=== PATIENT | female | born 1960 | race Caucasian/White ===

== ENCOUNTER → 2023-09-27 06:33 | Day surgery (SDC) | payer BC, SELFPAY | LOC: GI 06:33 | PROVIDERS: ATTENDING PHYSICIAN Internal Medicine Gastroenterology | DX: K57.30 Diverticulosis of large intestine without perforation or abscess without bleeding (principal); K51.211 Ulcerative (chronic) proctitis with rectal bleeding; K62.5 Hemorrhage of anus and rectum; K52.9 Noninfective gastroenteritis and colitis, unspecified | CPT/HCPCS: 45380; 88305 ==

== ENCOUNTER 2023-10-29 02:00 | Emergency (ER) | payer BC, SELFPAY ==
[2023-10-29 02:07] VITALS: BP 155/96
[2023-10-29 02:09] VITALS: BP 156/74
[2023-10-29 02:16] LABS: % Basophils 0.2 % (0-2); % Immature Granulocytes 0.3 % (0-0.5); % Lymphocytes 45.7 % (20.5-51.1); % Monocytes 9.2 % (1.7-9.3); % Neutrophils 44.6 % (42.2-75.2); Absolute Monocytes 0.8 10^3/uL (0.1-0.6); Absolute Neutrophils 3.9 10^3/uL (1.4-6.5); Hematocrit 39.5 % (37.0-47.0); Hemoglobin 13.4 g/dL (12.0-16.0); Mean Corp Hgb Conc. 33.9 g/dL (33.0-37.0); Mean Corpuscular Hgb 29.5 pg (27.0-31.0); Mean Corpuscular Volume 86.8 fL (81.0-99.0); Mean Platelet Volume 9.2 fL (7.4-10.4); Nucleated Red Blood Cells % 0 %; Platelet Count 226 10^3/uL (130-400); Red Blood Cell Count 4.55 10^6/uL (4.20-5.40); Red Cell Dist. Width 14.3 % (11.5-14.5); White Blood Cell Count 8.7 10^3/uL (4.8-10.8)
[2023-10-29 02:32] VITALS: BMI 28.1
[2023-10-29 02:39] LABS: ALT (SGPT) 29 U/L (0-35); AST (SGOT) 33 U/L (14-36); Albumin 4.3 g/dl (3.5-5.0); Alkaline Phosphatase 81 U/L (38-126); Blood Urea Nitrogen 24 mg/dl (7-17); Calcium 10.7 mg/dl (8.4-10.2); Carbon Dioxide 24 mmol/L (22-30); Chloride 110 mmol/L (98-107); Glucose 94 mg/dl (70-99); Potassium 4.3 mmol/L (3.5-5.1); Sodium 143 mmol/L (135-145); Total Bilirubin 0.4 mg/dl (0.2-1.3); Total Protein 7.3 g/dl (6.3-8.2); eGFR > 60.00
[2023-10-29 02:52] LABS: NT-proBNP 255 pg/ml; Troponin I < 0.012 ng/ml
[2023-10-29 02:56] VITALS: BP 144/84
--- NOTE | 2023-10-29 02:58 | ED.GENMED ---
History of Present Illness
<ELENITA Thomas - Last Filed: 10/29/23 04:22>
General
Chief Complaint: Chest Pain
Source: patient
Exam Limitations: none
Time Seen by Provider: 10/29/23 02:41
Nursing documentation reviewed up to this point in time: agreed with
Travel History
Have you had any contact with someone who has COVID-19?: No
Do you have any symptoms of coronavirus? Fever > 100 degrees, chills, cough, shortness of breath, sore throat, loss of taste or smell, muscle aches, or headache?: No
History of Present Illness
History of Present Illness:
This is a 62 year old female with history of Afib and ulcerative colitis who presents to the ED with complaint of chest pressure x3 hours. She was sleeping when she was woken up with chest pressure and describes the feeling like 'someone standing on
my chest.' She also states she feels as if she is skipping heart beats. She has associated nausea. She took TUMs assuming this was acid reflux, which did not provide any relief. She has increased recent stressors in her life. She denies SOB,
headache, dizziness/lightheadedness, fevers, vomiting or diarrhea. She quick smoking 3 months ago and denies any alcohol consumption. She was recently diagnosed with ulcerative colitis and has been on oral prednisone.
Past History
<ELENITA Thomas - Last Filed: 10/29/23 04:22>
Past History
ED Past Medical History: Other (Crohn's disease versus ulcerative colitis)
Social History
Tobacco: Non-smoker
Personal:
Living: with family
Employment: Employed
Review of Systems
<ELENITA Thomas - Last Filed: 10/29/23 04:22>
Review of Systems
Allergies reviewed?: Yes
All Other Systems: Not applicable
Constitutional: Reports no symptoms
EENT: Reports no symptoms
Respiratory: Reports no symptoms
Cardiac: Reports other (Chest pressure, 'feels like I'm skipping beats')
ABD/GI: Reports nausea
: Reports no symptoms
Musculoskeletal: Reports no symptoms
Skin: Reports no symptoms
Neurological: Reports no symptoms
Endocrine: Reports no symptoms
Hematologic/Lymphatic: Reports no symptoms
Psychiatric: Reports no symptoms
Phy Exam
<ELENITA Thomas - Last Filed: 10/29/23 04:22>
General Physical Exam
General Presentation: well appearing and no apparent distress
General Skin: warm and dry
General Habitus: normal
General Mental: alert
General Hydration: appears well hydrated
ENT Exam
ENT Exam: EOMI, pharynx normal, neck supple and normocephalic
Eye Exam
Eye Exam: PERRL, cornea clear and conjunctiva normal
Cardiovascular Exam
Cardiovascular Exam: no edema, no murmur, normal peripheral pulses and other (PVCs)
Pulmonary Exam
Pulmonary Exam: lungs clear, no respiratory distress, no rales, no crackles, no rhonchi, no stridor, no wheezing and no cough
Gastrointestinal Exam
Gastrointestinal Exam: normal bowel sounds, non tender, soft, no organomegaly, no pulsatile mass and non distended
Neurological Exam
Neurological Exam: alert, oriented x3, no motor deficits and speech normal
Musculoskeletal Exam
Musculoskeletal Exam: full ROM and no edema
Skin Exam
Skin Exam: normal color, warm/dry, no rash and no petechia
Psychiatric Exam
Psychiatric Exam: normal mood/affect
Scores
<Angle Casiano DO - Last Filed: 10/29/23 05:19>
Heart Score for Chest Pain Patients
STEMI patient?: No
History: Slightly or Non-Suspicious
ECG: Normal
Age: >45 - <65 years
Risk Factors: No Risk Factors
Troponin: </= Normal Limit
Heart Score for Chest Pain Patients: 1
Heart Score Risk: 2.5% MACE over next 6 weeks
Course
<ELENITA Thomas - Last Filed: 10/29/23 04:22>
Orders/Labs/Results
Orders:
Orders
10/29/23 02:03
Electrocardiogram (*1) Urgent
Reason for Study: Other
Other Reason for Exam: Respiratory Distress
Cardiac Monitoring- Treatment ONCE
EKG- Treatment ONCE
IV Insert/Care/Rem.- Treatment PRN
CR Chest - 2 Views Urgent
Comment:
Reason For Exam: respiratory distress
O2 Therapy [RESP] Urgent
Titrate/Wean O2 to maintain O2 sat greater than (%): 93
Special Instructions: TO MAINTAIN CONTINUOUS O2 SATS >/= 93%
Pulse Ox/cont/shift [RESP] Urgent
Quantity: 1
Special Instructions: continuous pulse ox
10/29/23 02:06
Complete Blood Count/With Diff Urgent
Comprehensive Metabolic Panel Urgent
Magnesium Urgent
NT-proBNP Urgent
Troponin I Urgent
10/29/23 03:10
Add On- LAB Urgent
Tests Added?: Mg
0.9% Sodium Chloride 1000 ml [Nss] 1,000 ml IV BOLUS
10/29/23 03:12
Mag Hydrox/Al Hydrox/Simeth [Maalox] 30 ml Phenobarb/Hyoscy/Atropine/Scop [] 10 ml Viscous Lidocaine 2% [Xylocaine Viscous Cup] 10 ml PO NOW
10/29/23 03:34
Mag Hydrox/Al Hydrox/Simeth [Maalox] 30 ml .ROUTE .STK-MED ONE
Phenobarb/Hyoscy/Atropine/Scop [] 10 ml .ROUTE .STK-MED ONE
Viscous Lidocaine 2% [Xylocaine Viscous Cup] 15 ml .ROUTE .STK-MED ONE
10/29/23 03:51
Sucralfate Suspension [Carafate Suspension] 1 gm PO NOW STA
10/29/23 04:04
Troponin I Urgent
Abnormal Lab Results
10/29/23
02:06
Absolute Lymphs (auto) 4.0 H 10^3/uL
(1.2-3.4)
Absolute Monos (auto) 0.8 H 10^3/uL
(0.1-0.6)
Chloride 110 H mmol/L
(98-107)
BUN 24 H mg/dl
(7-17)
Calcium 10.7 H mg/dl
(8.4-10.2)
10/29/23 02:06
10/29/23 02:06
Vital Signs
Initial and Last Documented VS:
Initial Vital Signs
Temp Pulse Resp BP Pulse Ox
98.3 F 92 20 155/96 99
10/29/23 02:07 10/29/23 02:07 10/29/23 02:07 10/29/23 02:07 10/29/23 02:07
Last Documented Vital Signs
Temp Pulse Resp BP Pulse Ox
98.3 F 74 8 153/74 95
10/29/23 02:07 10/29/23 03:30 10/29/23 03:30 10/29/23 03:00 10/29/23 03:30
<Angle Casiano, DO - Last Filed: 10/29/23 05:19>
Orders/Labs/Results
Orders:
Orders
10/29/23 02:03
Electrocardiogram (*1) Urgent
Reason for Study: Other
Other Reason for Exam: Respiratory Distress
Cardiac Monitoring- Treatment ONCE
EKG- Treatment ONCE
IV Insert/Care/Rem.- Treatment PRN
CR Chest - 2 Views Urgent
Comment:
Reason For Exam: respiratory distress
O2 Therapy [RESP] Urgent
Titrate/Wean O2 to maintain O2 sat greater than (%): 93
Special Instructions: TO MAINTAIN CONTINUOUS O2 SATS >/= 93%
Pulse Ox/cont/shift [RESP] Urgent
Quantity: 1
Special Instructions: continuous pulse ox
10/29/23 02:06
Complete Blood Count/With Diff Urgent
Comprehensive Metabolic Panel Urgent
Magnesium Urgent
NT-proBNP Urgent
Troponin I Urgent
10/29/23 03:10
Add On- LAB Urgent
Tests Added?: Mg
0.9% Sodium Chloride 1000 ml [Nss] 1,000 ml IV BOLUS
10/29/23 03:12
Mag Hydrox/Al Hydrox/Simeth [Maalox] 30 ml Phenobarb/Hyoscy/Atropine/Scop [] 10 ml Viscous Lidocaine 2% [Xylocaine Viscous Cup] 10 ml PO NOW
10/29/23 03:34
Mag Hydrox/Al Hydrox/Simeth [Maalox] 30 ml .ROUTE .STK-MED ONE
Phenobarb/Hyoscy/Atropine/Scop [] 10 ml .ROUTE .STK-MED ONE
Viscous Lidocaine 2% [Xylocaine Viscous Cup] 15 ml .ROUTE .STK-MED ONE
10/29/23 03:51
Sucralfate Suspension [Carafate Suspension] 1 gm PO NOW STA
10/29/23 04:04
Troponin I Urgent
Abnormal Lab Results
10/29/23
02:06
Absolute Lymphs (auto) 4.0 H 10^3/uL
(1.2-3.4)
Absolute Monos (auto) 0.8 H 10^3/uL
(0.1-0.6)
Chloride 110 H mmol/L
(98-107)
BUN 24 H mg/dl
(7-17)
Calcium 10.7 H mg/dl
(8.4-10.2)
10/29/23 02:06
10/29/23 02:06
Vital Signs
Initial and Last Documented VS:
Initial Vital Signs
Temp Pulse Resp BP Pulse Ox
98.3 F 92 20 155/96 99
10/29/23 02:07 10/29/23 02:07 10/29/23 02:07 10/29/23 02:07 10/29/23 02:07
Last Documented Vital Signs
Temp Pulse Resp BP Pulse Ox
98.3 F 74 8 153/74 95
10/29/23 02:07 10/29/23 03:30 10/29/23 03:30 10/29/23 03:00 10/29/23 03:30
<ELENITA Thomas - Last Filed: 10/29/23 04:22>
MDM/Problems Addressed
Differential Diagnosis Includes:
ACS, PE, anxiety, arrhythmia, aortic dissection, GERD
<Angle Casiano DO - Last Filed: 10/29/23 05:19>
*Radiology
Radiology exam reviewed: preliminary read by ED provider (Chest x-ray is unremarkable)
*Pulse Oximetry
Patient hypoxic: no
*EKG
Interpreted by ED Provider?: Yes
Interpretation: normal
Comparison EKG: no changes (Unchanged from previous June 2001)
Rate: normal
Rhythm: sinus
[place]: normal axis
Interval: normal interval
QRS Pattern: normal QRS
Ischemia: no ischemia
*Client Service Executive Interpretation
Rate: normal
Interpretation: normal
Rhythm: sinus and PVC's
*Critical Care Note
Total Time (30-74mins, 75-104mins- exclusive of procedures): Not Applicable
ED Attending Note
<ELENITA Thomas - Last Filed: 10/29/23 04:22>
-
Portions of this chart may have been created with voice recognition software.� Occasional wrong word or��sound alike� substitutions may have occurred due to the inherent limitations of voice recognition software.
<Angle Casiano DO - Last Filed: 10/29/23 05:19>
ED Attending Note
Patient seen and examined by attending physician: Yes
I performed the substantive portion of visit, reviewed & personally made and approve the management plan that is documented in note by myself or GERMAINE.: Yes
I performed a history and physical exam of patient and discussed management with resident, I reviewed resident's note and agree with documented findings and plan of care.: Yes
ED Attending Note:
This is a 62-year-old woman who has history of ulcerative colitis with recent UC flare over the past few months, has been treated with oral budesonide which she completed just yesterday. She has also been suffering with dental pain/dental infection
and was started on a course of amoxicillin earlier this week.
She awoke tonight around midnight with abrupt onset of moderate substernal chest pain/pressure that is nonradiating accompanied with intermittent palpitations which she describes as her heart skipping a beat. She did take 2 Tums without relief.
She admits to intermittent nausea but has had no vomiting. No coughing or shortness of breath, no neck pain or back pain.
She denies dizziness nor lightheadedness. No fevers or chills. No sore throat nor difficulty swallowing.
GENERAL: 62-year-old woman appears her stated age, awake and alert, easily communicative and appears in no acute distress. Very mildly anxious, briefly tearful during initial exam. is accompanying.
EYE: anicteric
NECK: Supple, nontender, no meningismus, no significant adenopathy.
ENT: oral mucosa is moist. No rhinorrhea.
CARDIAC: Regular rate and rhythm. no murmur. No rub.
LUNGS: Clear breath sounds bilaterally, no acute respiratory distress, no wheezes/rales/rhonchi
ABDOMEN: Soft, nondistended, without focal tenderness, no r/g, normoactive BS.
NEUROLOGICAL: Alert and oriented x3, no focal neuro deficits.
SKIN: Warm and dry, normal color, skin intact. No rash.
MUSCULOSKELETAL: No C/C/E. peripheral pulses are full and equal b/l. No palpable tenderness.
PSYCH: Mildly anxious, briefly tearful. Easily communicative.
Concern for ACS, GERD, arrhythmia.
EKG is reassuring, within normal limits.
Chest x-ray is unremarkable, clear lung patricia. Normal heart size. Normal mediastinum.
Monitor shows normal sinus rhythm with occasional unifocal PVCs. PVCs correlate with patient's complaints of intermittent skipping beats.
She otherwise remains hemodynamically stable.
Labs show very minimally elevated BUN of 24, creatinine 0.7. Troponin is negative.
BNP is unremarkable at 255. Will check magnesium, given IV bolus of IV fluids for mildly elevated BUN/mild prerenal azotemia.
Will plan to repeat troponin.
Will trial a GI cocktail for what I suspect is acid reflux.
10/29/2023 0510 AM
Troponin remains flat, negative.
Patient reports significant relief of chest discomfort after GI cocktail/Carafate.
Monitored continues to show normal sinus rhythm with occasional unifocal PVCs.
I suspect chest discomfort is GERD in nature which may have been aggravated with recent oral steroids as well as antibiotic.
Discussed importance remaining well-hydrated on a daily basis, avoid caffeinated beverages, alcohol, chocolate, spicy or fried foods. Otherwise discussed importance of remaining well-hydrated on a daily basis.
Prompt follow-up with PCP for recheck.
Return precautions discussed.
Discharge Plan
Departure
Patient Disposition: Home (Routine Discharge)
Date of Disposition: 10/29/23
Time of Disposition: 05:15
Patient with high blood pressure during this ER visit?: Yes
Condition: Good
Discharge Problem:
Acute nonspecific chest pain with low risk of coronary artery disease, Chest pain due to GERD, Unifocal PVCs
Instructions: Ventricular premature beats, Chest Pain PCP Follow Up
Prescriptions:
No Action
No Meds [No Current Medications]
0
cephalexin 500 MG capsule
500 mg PO TID Qty: 30 0RF
hydrocodone-acetaminophen 5 MG/500 MG tablet
1 tab PO .Q4-6HPRN PRN (Reason: PAIN) Qty: 20 0RF
hydrocodone-acetaminophen 1 TABLET tablet
1 tab PO Q4HPRN PRN (Reason: pain) Qty: 12 0RF
Referrals:
Mari Bess PA-C [Non-Admitting Privileges] - Call in 1-3 days for appt
UNKNOWN - PT NOT,INTERVIEWE [Unknown Provider] -
Interventions
Interventions:
*Risk Screen - Suicide Last Done: 10/29/23 02:32
*General Assessment Last Done: 10/29/23 02:32
*Neglect/Abuse Screening Last Done: 10/29/23 02:32
ED- Fall Risk Assessment Last Done: 10/29/23 02:32
ED- Cardiac Assessment Last Done: 10/29/23 02:32
Discharge Date and Time
Print Language: EQUATORIAL GUINEAN
[2023-10-29 03:00] VITALS: BP 153/74
[2023-10-29] MEDS: NSS 1000 IV (03:29)
[2023-10-29] MEDS: MAALOX 50 PO (03:35)
[2023-10-29 03:43] LABS: Magnesium 2.1 mg/dl (1.6-2.3)
[2023-10-29 04:00] VITALS: BP 137/78
[2023-10-29] MEDS: CARAFATE SUSPENSION 1 GM PO (04:07)
[2023-10-29 04:54] LABS: Troponin I < 0.012 ng/ml
[2023-10-29 05:00] VITALS: BP 121/65
== END 2023-10-29 05:28 | disposition home or self-care (01) ==
LOC: EMR 02:00
PROVIDERS: EMERGENCY PHYSICIAN Emergency Medicine; FAMILY PHYSICIAN Family Medicine
DX: R07.89 Other chest pain (principal); I48.91 Unspecified atrial fibrillation; K51.90 Ulcerative colitis, unspecified, without complications; K21.9 Gastro-esophageal reflux disease without esophagitis
CPT/HCPCS: 99283; 71046; 80053; 83735; 83880; 84484; 85025; 93005

== ENCOUNTER 2025-05-18 06:33 | Observation (INO) | payer BC, SELFPAY ==
[2025-05-18] VITALS (13 sets, daily range): BP systolic 133–185; BP diastolic 62–110; BMI 37.4
[2025-05-18] MEDS: MORPHINE SULFATE 4 MG IV (01:10)
[2025-05-18 01:33] LABS: Hematocrit 37.6 % (37.0-47.0); Hemoglobin 12.4 g/dL (12.0-16.0); Mean Corp Hgb Conc. 33.0 g/dL (33.0-37.0); Mean Corpuscular Volume 84.5 fL (81.0-99.0); Nucleated Red Blood Cells % 0 %; Platelet Count 234 10^3/uL (130-400); Red Cell Dist. Width 14.2 % (11.5-14.5)
[2025-05-18] MEDS: ZOFRAN 4 MG IV (01:42)
[2025-05-18 01:44] LABS: ALT (SGPT) 16 U/L (0-35); AST (SGOT) 19 U/L (14-36); Albumin 4.1 g/dl (3.5-5.0); Alkaline Phosphatase 90 U/L (38-126); Blood Urea Nitrogen 9 mg/dl (7-17); Calcium 10.0 mg/dl (8.4-10.2); Carbon Dioxide 26 mmol/L (22-30); Chloride 110 mmol/L (98-107); Estimated Creatinine Clearance 114 ml/min; Glucose 98 mg/dl (70-99); Potassium 4.3 mmol/L (3.5-5.1); Sodium 140 mmol/L (135-145); Total Protein 7.2 g/dl (6.3-8.2); eGFR > 60.00
[2025-05-18 01:56] LABS: Troponin I < 0.012 ng/ml
--- NOTE | 2025-05-18 02:43 | ED.GENMED ---
History of Present Illness
General
Chief Complaint: Chest Pain
Source: patient
Exam Limitations: none
Time Seen by Provider: 05/18/25 00:40
Nursing documentation reviewed up to this point in time: agreed with
History of Present Illness
History of Present Illness:
Patient is a 64-year-old female with history of ulcerative colitis who presents to the emergency department with acute onset upper back pain. Patient states that she was woken from sleep 'a few hours' prior to arrival with a sharp pain across her
upper back. She states that it felt like someone was 'slicing her with a knife'. She also describes a pressure in her mid chest and numbness sensation in left arm. She does report some mild shortness of breath however is unsure if this may be due
to the discomfort she is feeling currently.
Patient denies any fever or productive cough. No lightheadedness/dizziness. No visual changes.
Patient denies any history of similar pain. She has not had any recent inciting injury or trauma.
No recent travel or recent surgeries. No exogenous hormone use
Past History
Past History
ED Past Medical History: Other (Crohn's disease versus ulcerative colitis)
Social History
Tobacco: Non-smoker
Personal:
Living: with family
Employment: Employed
Review of Systems
Review of Systems
Allergies reviewed?: Yes
All Other Systems: ROS reviewed and negative except as documented in HPI and ROS
Phy Exam
Physical Exam
Physical Exam:
Vitals: Hypertensive, otherwise vital signs stable. Afebrile
General: Patient is moderately uncomfortable appearing
Skin: Warm and dry, no rashes or lesions
Head: Normocephalic, atraumatic
Eyes: Sclera nonicteric.
Throat: Protecting airway
Neck: Normal ROM, no cervical spine tenderness, no meningismus
Cardiac: Regular rate and rhythm, no murmurs. 2+ palpable radial pulses bilaterally
Pulm: Normal respiratory effort. Lungs clear
Abdomen: Abdomen soft and nontender.
Back: No midline spinal tenderness. Mild reproducible tenderness in left and right scapular area. No rash
Extremities: No evidence of cyanosis or edema
Neuro: AAOx3. Grossly intact
Psychiatric: Normal affect.
Scores
Heart Score for Chest Pain Patients
STEMI patient?: Not applicable
Course
Orders/Labs/Results
Orders:
Orders
05/18/25 00:21
Electrocardiogram (*1) Urgent
Reason for Study: Other
Other Reason for Exam: Respiratory Distress
Cardiac Monitoring- Treatment ONCE
EKG- Treatment ONCE
IV Insert/Care/Rem.- Treatment PRN
O2 Therapy [RESP] Urgent
Titrate/Wean O2 to maintain O2 sat greater than (%): 93
Special Instructions: TO MAINTAIN CONTINUOUS O2 SATS >/= 93%
Pulse Ox/cont/shift [RESP] Urgent
Quantity: 1
Special Instructions: continuous pulse ox
05/18/25 01:00
CT Chest/abd/pelvis Angio W/wo Urgent
Comment:
Reason For Exam: Upper back pain, chest pain
Morphine Sulfate 4 mg IV NOW STA
05/18/25 01:09
Complete Blood Count/With Diff Urgent
Comprehensive Metabolic Panel Urgent
Glycohemoglobin (HgbA1c) Urgent
NT-proBNP Urgent
Troponin I Urgent
05/18/25 01:39
Ondansetron Injectable [Zofran] 4 mg IV NOW STA
05/18/25 02:45
Morphine Sulfate 2 mg IV NOW STA
05/18/25 04:10
Electrocardiogram (*1) Urgent
Reason for Study: Chest Pain
EKG- Treatment ONCE
05/18/25 04:14
Troponin I Urgent
05/18/25 Breakfast
Regular
At Your Request: Full Participation
05/18/25 06:33
Admit/Transfer Patient As Directed
Co-Sign Provider:
Level of Care: Observation services
Assign to:: Telemetry
Physician / Group: Teto
Diagnosis: Chest pain
Reason for Telemetry: Chest Pain syndromes
Date to Stop Telemetry: 05/20/25
Time to Stop Telemetry: 11:00
PRN Pain Medication Management As Directed
May give lesser potent ordered pain med per pt: Yes
preference::
Protocol:: Medication orders for pain may be administered in a
manner that supports deferring to patient preference
when the pt is:
- Requesting an ordered lesser potent pain medication.
Least to most potent pain medications are defined
as: acetaminophen < NSAID < tramadol < opioids
(morphine, oxycodone, hydromorphone).
- Requesting a lesser dose of the same medication IF
ORDERED.
- Requesting a less intrusive route of administration
if both routes are prescribed by the provider (PO <
IV).
05/18/25 06:34
Code Status As Directed
Resuscitation Status: Full Code
05/18/25 09:46
Acetaminophen [Tylenol] 650 mg PO Q4HPRN PRN
Aspirin Chewable [Low Strength Aspirin] 81 mg PO DAILY
Diazepam [Valium] 5 mg PO TIDPRN PRN
Morphine Sulfate 2 mg IV Q4HPRN PRN
Nitroglycerin Sublingual [Nitrostat (Sublingual)] 0.4 mg SL [id number] PRN
05/18/25 09:46
CARDIOLOGY CONSULT Routine
Consulting Provider: Isidro Black
Was physician already notified: No
Reason for consult: chest pain
Consult Notification Routine
Specialty to Notify: Cardiology
Date consulting provider notified: 05/18/25
Time consulting provider notified: 10:40
Notified:: Provider
Comment: Dr Black
Activity As Directed
Activity Level: Ambulate
EKG with chest pain [ECG as needed] As Directed
ECG as needed for:: Chest Pain
Heat Application As Directed
Apply heat therapy device to (location):: Upper back
Device Frequency setting:: 20 minute cycles
Device temperature setting:: Moderate: 100 F (38 C)
I/O [Intake/ Output] As Directed
Frequency: Per unit guidelines
Vital Signs As Directed
Frequency: Per unit guidelines
Oxygen Therapy [O2 Therapy] [RESP] Routine
Titrate/Wean O2 to maintain O2 sat greater than (%): 94
DX Deep Vein Thrombosis Video Routine
05/18/25 13:43
Discharge Patient As Directed
Year Pneumococcal vaccine administered: unk
05/18/25 18:00
Enoxaparin Sodium [Lovenox] 40 mg SC QPM
05/20/25 11:00
DC Protocol for Telemetry ONCE
Abnormal Lab Results
05/18/25
01:09
Absolute Monos (auto) 0.8 H 10^3/uL
(0.1-0.6)
Immature Gran % 0.6 H %
(0-0.5)
Monocytes % 11.5 H %
(1.7-9.3)
Chloride 110 H mmol/L
(98-107)
05/18/25 01:09
05/18/25 01:09
Vital Signs
Initial and Last Documented VS:
Initial Vital Signs
Temp Pulse Resp BP Pulse Ox
97.3 F 89 20 185/110 97
05/18/25 00:29 05/18/25 00:29 05/18/25 00:29 05/18/25 00:29 05/18/25 00:29
Last Documented Vital Signs
Temp Pulse Resp BP Pulse Ox
97.3 F 76 13 154/82 98
05/18/25 00:29 05/18/25 11:30 05/18/25 11:30 05/18/25 11:00 05/18/25 11:30
MDM/Problems Addressed
Differential Diagnosis Includes:
Not limited to: Acute coronary syndrome, aortic dissection, pulmonary embolism, muscle strain/spasm, GERD, etc.
MDM/Problems Addressed:
64-year-old female with acute onset, sharp upper back pain and chest pressure associated left arm tingling which woke her from sleep this evening. No shortness of breath. No known inciting injury or trauma. Patient quite hypertensive on arrival
however somewhat improved by my initial assessment. Otherwise, vital signs are stable. On exam, she appears very uncomfortable due to pain. Heart regular rate and rhythm. Lungs clear bilaterally. She does have some reproducible tenderness
across upper back/scapular region bilaterally. Palpable and equal radial pulses bilaterally. No associated neurologic deficits noted on exam.
Initial EKG without any acute ischemic changes. Patient was sent immediately for dissection study. Will plan to check labs, troponin. Will give morphine for pain and reassess.
Update: Dissection study negative for aortic dissection, pulmonary embolism, or acute abnormalities. Her lab work is unremarkable. Initial troponin undetectable. Her symptoms did improve somewhat following initial dose of morphine however did
return. Will give another dose of pain medication and continue to monitor. Her vital signs remained stable.
Update: Repeat troponin undetectable. Workup in emergency department negative. While symptoms may be musculoskeletal in nature, story is somewhat concerning. Feel patient to be admitted for continued observation and troponin trending/cardiology
evaluation. Patient is agreeable with plan. Patient accepted to hospital service in stable condition. Patient seen with attending physician
Chronic conditions affecting care:
N/A
Acute Exacerbation and/or Progression of Chronic Illness:
N/A
*Radiology
Radiology exam reviewed: radiology read reviewed
*Pulse Oximetry
SaO2: 98
Oxygen Mode of Delivery: Room air
Patient hypoxic: no
*EKG
Interpreted by ED Provider?: Yes
EKG Intrepretation Date: 05/18/25
Interpretation: abnormal
Comparison EKG: no changes
Heart Rate: 81
Rate: normal
Rhythm: sinus
[place]: normal axis
Interval: normal QT interval
QRS Pattern: normal QRS
Ischemia: non-specific ST changes
*Hammer Mill Operator Interpretation
Rate: normal
Interpretation: normal
Heart Rate: 74
Rhythm: sinus
*Critical Care Note
Total Time (30-74mins, 75-104mins- exclusive of procedures): Not Applicable
Patient Management
Discussion with other providers: Hospitalist and Digital Marketing Assistant (ED attending physician)
ED Attending Note
-
Portions of this chart may have been created with voice recognition software.� Occasional wrong word or��sound alike� substitutions may have occurred due to the inherent limitations of voice recognition software.
Discharge Plan
Departure
Patient Disposition: Admit
Date of Disposition: 05/18/25
Time of Disposition: 04:34
Presentation/result/management discussed w/ accepting MD/DO: Hospitalist
Discharge Problem:
Chest pain, Acute upper back pain
Prescriptions:
Continued
fluticasone propionate 50 mcg/actuation [place],Suspension
1 spray INTRANASAL BID
levocetirizine [Xyzal] 5 mg Tablet
5 mg PO QPM
Referrals:
Mari Bess PA-C [Family Provider, Internal Medicine] - in less than 1 week
Activity Restrictions/Additional Instructions:
CT: CHEST CTA:
Moderate calcific atherosclerotic plaque in the left coronary artery.
Minimal right apical paraseptal emphysema.
Small number of small sub-5 mm solid pulmonary nodules in the right upper lobe (possibly infectious or inflammatory in etiology).
ABDOMEN and PELVIS CTA:
Severe diverticulosis throughout the sigmoid colon with moderate wall thickening, intramural edema, and mucosal hyperenhancement which extends inferiorly into the rectum. Mild amount of lymphadenopathy throughout the sigmoid mesocolon and mesorectal
fat. Diagnostic possibilities are (1) an acute infectious or inflammatory proctocolitis, (2) severe diverticular disease, or (3) less likely carcinoma.
1.7 cm mildly complex cyst in the left ovary.
Moderate calcific atherosclerotic plaque throughout the abdominal aorta.
8.7 mm round arterial enhancing lesion in the right lobe the liver. Diagnostic possibilities are (1) a small hepatic tumor (probably benign) or (2) a peripheral vascular shunt.
Mild hepatomegaly.
Severe discogenic degenerative disease at L5/S1.
-Multiple incidental findings above that you need to discuss and address with your PCP within 1 week.
Interventions
Interventions:
*Risk Screen - Suicide Last Done: 05/18/25 00:29
*General Assessment Last Done: 05/18/25 00:29
*Neglect/Abuse Screening Last Done: 05/18/25 00:29
*ED- Fall Risk Assessment Last Done: 05/18/25 00:29
*ED COVID-19 Vaccine History Last Done: 05/18/25 01:36
*ED Influenza Vaccine History Last Done: 05/18/25 00:29
*Nursing Disposition Last Done: 05/18/25 13:53
ED- Cardiac Assessment Last Done: 05/18/25 01:36
Discharge Date and Time
Discharge Date/Time: 05/18/25 13:54
Print Language: KHMER
[2025-05-18] MEDS: MORPHINE SULFATE 2 MG IV (02:57)
[2025-05-18 05:15] LABS: Troponin I < 0.012 ng/ml
--- NOTE | 2025-05-18 06:37 | HPS.HSE ---
Family Physician
-
Family Physician: Mari Bess
Chief Complaint
-
Back Pain, Chest pain
History of Present Illness
Patient is a 64y F with PMH significant for colitis and obesity who presents to ED complaining of back pain and chest pain. Patient states that she was having crampy abdominal pain and nausea yesterday - typical of her 'colitis' symptoms. She
spent the day lying on the couch and was very inactive. She went to bed hen woke around 11PM with severe upper back pain. Patient indicates pain across back around T4 level. She noted chest heaviness as well as numbness and tingling in the L arm.
She thought that her symptoms may be due to indigestion. She took Pepcid and TUMS at home with no improvement in her symptoms. With persistent discomfort she presented to ED for further evaluation.
Patient denies any associated diaphoresis, nausea, dyspnea, etc.
She denies any prior h/o similar symptoms.
In the ED patient received 2 doses of IV morphine and she is resting comfortably at the time of my exam with no complaints.
Medical History
Past Medical History
Past Medical History: Reports Other
Additional Past Medical History:
Colitis Unspecified.
History of 'Lone' A-Fib
Nephrolithiasis
Obesity
Seasonal Allergies
Past Surgical History: Reports None
Social History
Tobacco: Former Smoker (Quit smoking about 4 years ago.)
Alcohol: None
Family History
Family History: Not pertinent
Allergies / Home Medications
Allergies reflects when Allergies were last updated in [facility].
Home Medications with original date entered in [facility]
Allergy/Medication List:
Allergies
Allergy/AdvReac Type Severity Reaction Status Date / Time
Sulfa (Sulfonamide Allergy Hives Verified 05/18/25 00:29
Antibiotics)
Home Medications
fluticasone propionate 50 mcg/actuation nasal spray,suspension 1 spray intranasal BID 05/18/25
levocetirizine 5 mg tablet (Xyzal) 5 mg PO QPM 05/18/25
Review of Systems
-
History Source: Patient
A 12 point ROS was completed and negative except as noted: Yes
Constitutional: Denies Fever or Chills
Respiratory: Denies Cough or Trouble Breathing
Cardiac: Reports Chest Pain; Denies Diaphoresis, Palpitations or Syncope
Abdomen/GI: Reports Anorexia; Denies Abdominal Pain, Nausea, Vomiting, Diarrhea, Bloody Stools or Black Stools
: Denies Dysuria, Frequency or Flank Pain
Musculoskeletal: Reports Other (Back Pain); Denies Joint Pain
Neurological: Reports Numbness; Denies Dizzy or Headache
Psych: Denies Depression or Anxiety
Physical Exam
Vital Signs
Vital Signs
Temp Pulse Resp BP Pulse Ox
97.3 F 77 18 139/67 96
05/18/25 00:29 05/18/25 05:30 05/18/25 05:30 05/18/25 05:00 05/18/25 05:30
Physical Exam
General: Other (64y F in no acute distress.)
HEENT: Moist mucous membranes and Other (Thick neck.)
Respiratory: Clear; No Wheezes, Rales or Rhonchi
Cardiac: S1/S2 and Regular Rhythm; No Murmur
GI: Other (Obese, not tender, pos BS.)
Musculoskeletal: No Clubbing, No Cyanosis and No Edema
Neuro: AO x 3
Laboratory Results
-
05/18/25 01:09
05/18/25 01:09
Laboratory Results
Total Bilirubin 0.2 mg/dl (0.2-1.3) 05/18/25 01:09
AST 19 U/L (14-36) 05/18/25 01:09
ALT 16 U/L (0-35) 05/18/25 01:09
Alkaline Phosphatase 90 U/L (38-126) 05/18/25 01:09
Troponin I < 0.012 ng/ml 05/18/25 04:14
Impression/Plan
-
A/P: Patient is a 64y F with PMH significant for obesity and colitis who presents to ED complaining of back pain and chest pain that woke her from sleep.
Chest Pain / Back Pain
- Observe for further evaluation and treatment.
- Pain free at present - follow for any recurrent / new symptoms.
- EKG unremarkable. Troponin undetectable x 2 so far.
- CT done in the ED with no evidence of dissection, etc.
- Cardiology evaluation for any additional recommendations / potential further outpatient work-up.
- Application of heat / treat for possible musculoskeletal etiologies of pain.
Colitis
- Uncertain type / diagnosis here. Not on any jail / chronic medications.
- Has taken steroids in the past for 'flares'.
- Some crampy discomfort, etc yesterday. No N/V, bloody stool, diarrhea, etc.
Seasonal Allergies
- Resume usual regimen upon discharge.
Obesity due to excess calories
- Affects all aspects of care.
- Encourage healthy diet and increased exercise with goal of weight loss.
DVT Prophylaxis: Lovenox
Code Status: Full
--- NOTE | 2025-05-18 08:33 | EDCM ---
Reviewed chart and met with pt bedside in ED. Pt lives with her in multistory split level home, [address]. Has first floor half bath, bedroom and full bath on third level.
Independent in ADLs, personal care and ambulation at baseline. No assistive devices.
OBS form reviewed and signed, copy left with pt.
Confirms prescription coverage.
No hx VN or SNF
PCP: Mari Bess
Pharmacy: [facility]
Anticipate discharge home, CM will continue to follow for all discharge planning needs.
[2025-05-18] MEDS: TYLENOL 650 MG PO (10:43)
[2025-05-18 11:21] LABS: Glycohemoglobin (HgbA1c) 5.4 % (4.0-5.9)
--- NOTE | 2025-05-18 11:39 | CON.CAR ---
Consultation
Consultation Request
Date/Time Consultation Requested: May 18, 2025 7:30 AM
Date/Time Consultation Performed: May 18, 2025 11:30 AM
Requesting Provider: Hospitalist
Performing Provider: Isidro Black
Reason for Consultation: Chest pain
Medical History
-
Chief Complaint: Chest pain
History of Present Illness:
64-year-old female with past medical history of paroxysmal A-fib, ulcerative colitis, nephrolithiasis, and obesity who is here because of back and chest pain. In regards to her A-fib she apparently 2 occurrences 1 in her late 20s and 1 in her early
30s. She is not on anticoagulation. She tells me that her chest pain initially started as back pain. She went to bed last night and then awoke in the middle of the night with stabbing back pain. It then wrapped around and felt like stabbing back
pain with chest pressure. It lasted several hours. She tells me she took Pepcid and then about an hour later took some Tums. This did not help relieve her discomfort. Additionally, she experienced left arm numbness. Because of these reason she
decided to present to the emergency room. In the emergency room workup has been unremarkable thus far. She now feels essentially resolved at this point. She would like to go home. I discussed follow-up nuclear exercise stress test given her
significant knee osteoarthritis and inability to possibly exercise. She is agreeable. Additionally, we will obtain an echocardiogram.
Past Medical History
Past Medical History: Other (Paroxysmal A-fib, ulcerative colitis, nephrolithiasis, obesity)
Past Surgical History: None
Social History
Tobacco: Former Smoker
Alcohol: None
Personal:
Living: With Family
Family History
Family History: Reviewed & Not Pertinent
Allergies / Home Medications
Allergy/AdvReac Type Severity Reaction Status Date / Time
Sulfa (Sulfonamide Allergy Hives Verified 05/18/25 00:29
Antibiotics)
�Medication �Instructions �Recorded �Confirmed �Type
fluticasone propionate 50 1 spray intranasal BID 05/18/25 05/18/25 History
mcg/actuation nasal
spray,suspension
levocetirizine 5 mg tablet (Xyzal) 5 mg PO QPM 05/18/25 05/18/25 History
Review of Systems
-
All other systems: Negative unless noted
Physical Exam
Vital Signs
Temp Pulse Resp BP Pulse Ox
97.3 F 78 18 154/82 100
05/18/25 00:29 05/18/25 11:00 05/18/25 11:00 05/18/25 11:00 05/18/25 11:00
Lab Results
05/18/25 01:09
05/18/25 01:09
Troponin I < 0.012 ng/ml 05/18/25 04:14
[id number] Pept 119 pg/ml 05/18/25 01:09
Physical Exam
General: Well Developed, Well Nourished and No Apparent Distress
HEENT: Normocephalic
Respiratory: Clear
Cardiac: S1/S2 and Regular Rhythm
GI: Soft
Skin: Warm and Dry
Neuro: AO x 3
Psych: Calm
Impression / Plan
-
A/P: 64-year-old female with past medical history of paroxysmal A-fib last occurrence nearly 30 years ago, ulcerative colitis, nephrolithiasis, and obesity who is here for stabbing back pain with chest pain.
Chest pain
-Her chest pain is essentially resolved at this point. Her EKG is unremarkable. Lab work including troponins are normal.
- Given her resolution of symptoms and unremarkable testing, I discussed with her follow-up stress test and echocardiogram. She is agreeable.
Data Reviewed
-
EKG: Tracing Personally Visualized and interpreted (Sinus rhythm)
Labs: Labs Reviewed by me
--- NOTE | 2025-05-18 12:18 | W.PN.HOSP.TC ---
Today's Communication/Plan
-
see plan
Assessment / Plan
Assessment / Plan
64y F with PMH significant for obesity and colitis who presents to ED complaining of back pain and chest pain that woke her from sleep.
Gen: NAD, AAOx3.
Eyes: EOMI, PERRLA, no scleral icterus.
Neck: supple.
CV: RRR, +S1/S2, no m/r/g.
Resp: CTAB, no rales, wheezes, or rhonchi.
Skin: intact
Neuro: CN 2-12 intact, non-focal.
Psych: Normal mood and affect.
ECG (read by me): NST @ 70, nl axis/intervals, no acute ST/TW changes
Chest pain and back pain:
-ECG without acute ischemic changes
-Trops NEG
-CTA C/A/P reportedly without evidence of dissection. I personally walked over to radiology and spoke to Dr. Wall who stated that either himself or Dr. Del Rosario will read the CTA C/A/P and send me a [facility] message.
-Trops NEG x 2
-seen by Dr. Black by cardiology and cleared for d/c from his standpoint
Colitis
-Uncertain type / diagnosis here. 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
-Has taken steroids in the past for 'flares'.
-Some crampy discomfort, etc yesterday. No N/V, bloody stool, diarrhea, etc.
Seasonal Allergies:
-Resume usual regimen upon discharge
Obesity due to excess calories:
-BMI 37
-Affects all aspects of care
-Encourage weight loss
FULL/Lovenox
Dispo: Medically cleared for d/c if CTA C/A/P is without aortic dissection.
Anticipated Discharge: Today
Subjective/Interval History
-
Date of Service: May 18, 2025
Chest pain and back pain have resolved.
Objective Data
-
Labs:
Laboratory Results
05/18/25
01:09
WBC 6.9
Hgb 12.4
Hct 37.6
Plt Count 234
Sodium 140
Potassium 4.3
Chloride 110 H
Carbon Dioxide 26
BUN 9
Creatinine 0.6
Glucose 98
Calcium 10.0
Total Bilirubin 0.2
AST 19
ALT 16
Alkaline Phosphatase 90
Vital Signs:
Vital Signs
Temp Pulse Resp BP Pulse Ox
97.3 F 76 13 154/82 98
05/18/25 00:29 05/18/25 11:30 05/18/25 11:30 05/18/25 11:00 05/18/25 11:30
--- NOTE | 2025-05-18 13:52 | W.DCSUMMARY ---
Discharge Summary
Discharge Data
Date of Admission: 05/18/25
Date of Discharge: 05/18/25
-
Pending Results: No
Hospital Course
Primary diagnoses:
Chest and back pain, likely musculoskeletal
Secondary diagnoses:
Inflammatory bowel disease
Seasonal Allergies
Obesity due to excess calories
Consultants:
Cardiology
Imaging:
CHEST CTA:
1. Moderate calcific atherosclerotic plaque in the left coronary artery.
2. Minimal right apical paraseptal emphysema.
3. Small number of small sub-5 mm solid pulmonary nodules in the right upper lobe (possibly infectious or inflammatory in etiology).
ABDOMEN and PELVIS CTA:
1. Severe diverticulosis throughout the sigmoid colon with moderate wall thickening, intramural edema, and mucosal hyperenhancement which extends inferiorly into the rectum. Mild amount of lymphadenopathy throughout the sigmoid mesocolon and
mesorectal fat. Diagnostic possibilities are (1) an acute infectious or inflammatory proctocolitis, (2) severe diverticular disease, or (3) less likely carcinoma.
2. 1.7 cm mildly complex cyst in the left ovary.
3. Moderate calcific atherosclerotic plaque throughout the abdominal aorta.
4. 8.7 mm round arterial enhancing lesion in the right lobe of the liver. Diagnostic possibilities are (1) a small hepatic tumor (probably benign as a flash filling hemangioma) or (2) a peripheral vascular shunt.
5. Mild hepatomegaly.
6. Severe discogenic degenerative disease at L5/S1.
EMPHYSEMA: The presence of pulmonary emphysema is an independent risk factor for lung cancer. Low-dose cancer screening should be considered in the future, if the patient has not already enrolled.
Hospital course: 64-year-old female who was admitted earlier this morning with chief complaints of chest and back pain as outlined in H&P done on admission. ECG was without acute ischemic changes and her troponins were negative. She was seen in
consultation by Dr. Black and he cleared for d/c from his standpoint. CT scan of the chest abdomen pelvis was negative for any acute findings that required further hospitalization although it did reveal numerous incidental findings as reported
above. Prior to discharge I printed the report of the CT scan of the chest abdomen pelvis and personally reviewed with the patient at bedside in ED3. The patient verbally acknowledged understanding of the incidental findings I was communicating to
her. I explained that these findings need to be monitored over time and that she needed to discuss these findings with her primary care physician within 1 week of discharge. She verbally acknowledged understanding and agreement with all of this.
Total time spent on d/c = 58 min. This included today's physical exam, progress note, review of laboratory and diagnostic data, preparation of discharge documents and prescriptions, and discussions about the pt's hospital course and discharge plan
with the patient and other medical technologist chemistry involved in the patient's care.
Discharge Plan
-
Patient Disposition: Home (Routine Discharge)
Discharge Diagnosis/Procedures: Chest pain and back pain
Condition: Good
Diet: Regular
Activity: As tolerated
Driving Restrictions: As prior to admission
Activity Restrictions/Additional Instructions:
CT: CHEST CTA:
Moderate calcific atherosclerotic plaque in the left coronary artery.
Minimal right apical paraseptal emphysema.
Small number of small sub-5 mm solid pulmonary nodules in the right upper lobe (possibly infectious or inflammatory in etiology).
ABDOMEN and PELVIS CTA:
Severe diverticulosis throughout the sigmoid colon with moderate wall thickening, intramural edema, and mucosal hyperenhancement which extends inferiorly into the rectum. Mild amount of lymphadenopathy throughout the sigmoid mesocolon and mesorectal
fat. Diagnostic possibilities are (1) an acute infectious or inflammatory proctocolitis, (2) severe diverticular disease, or (3) less likely carcinoma.
1.7 cm mildly complex cyst in the left ovary.
Moderate calcific atherosclerotic plaque throughout the abdominal aorta.
8.7 mm round arterial enhancing lesion in the right lobe the liver. Diagnostic possibilities are (1) a small hepatic tumor (probably benign) or (2) a peripheral vascular shunt.
Mild hepatomegaly.
Severe discogenic degenerative disease at L5/S1.
-Multiple incidental findings above that you need to discuss and address with your PCP within 1 week.
Referrals:
Mari Bess PA-C [Family Provider, Internal Medicine] - in less than 1 week
Prescriptions:
Continued
fluticasone propionate 50 mcg/actuation [place],Suspension
1 spray INTRANASAL BID
levocetirizine [Xyzal] 5 mg Tablet
5 mg PO QPM
Discharge Orders:
Discharge Patient (As Directed); Ordered 05/18/25
Ordered By: Joe Mckinnon
Discharge Date and Time
Print Language: ANDORRAN
== END 2025-05-18 13:55 | disposition home or self-care (01) ==
LOC: ED 06:33
PROVIDERS: Physician Assistant; ADMITTING PHYSICIAN Hospitalist; CONSULT PHYSICIAN Internal Medicine Cardiovascular Disease; EMERGENCY PHYSICIAN Student in an Organized Health Care Education/Training Program; FAMILY PHYSICIAN Physician Assistant
DX: R07.89 Other chest pain (principal); M54.6 Pain in thoracic spine; K51.90 Ulcerative colitis, unspecified, without complications; J30.2 Other seasonal allergic rhinitis; E66.01 Morbid (severe) obesity due to excess calories; E66.09 Other obesity due to excess calories; I48.0 Paroxysmal atrial fibrillation; Z68.37 Body mass index [BMI] 37.0-37.9, adult; Z79.899 Other long term (current) drug therapy; Z87.442 Personal history of urinary calculi; Z87.891 Personal history of nicotine dependence
CPT/HCPCS: 71275; 74174; 80053; 83036; 83880; 84484; 85025; 93005; 96374; 96375; 96376; 99285; Q9967

== ENCOUNTER → 2025-06-05 08:20 | Outpatient (REF) | payer BC, SELFPAY | LOC: HWRAD 08:20 | PROVIDERS: ATTENDING PHYSICIAN Physician Assistant | DX: Z51.89 Encounter for other specified aftercare (principal); N83.292 Other ovarian cyst, left side; I25.10 Atherosclerotic heart disease of native coronary artery without angina pectoris | CPT/HCPCS: 76830; 76856 ==

== ENCOUNTER → 2025-06-05 08:25 | Outpatient (REF) | payer SELFPAY | LOC: HWRAD 08:25 | PROVIDERS: ATTENDING PHYSICIAN Physician Assistant; REFERRING PHYSICIAN Internal Medicine Clinical Cardiac Electrophysiology | DX: Z51.89 Encounter for other specified aftercare (principal); N83.292 Other ovarian cyst, left side; I25.10 Atherosclerotic heart disease of native coronary artery without angina pectoris | CPT/HCPCS: 75571 ==